=== PATIENT | male | born 1975 | race Caucasian/White ===

== ENCOUNTER 2018-06-05 14:25 | Emergency (ER) | payer SELFPAY ==
[~2018-06-05] VITALS: Ht 177.8 cm; Wt 102.0 kg
[~2018-06-05 14:25] MED LIST: CIPRO500 MG OR; LISI20TA5; NO HOME MEDS; OXYCOD-APAP1 TAB PO; ULTRAM50 MG OR; ZESTRIL10 M1 PO
[2018-06-05] MEDS ORDERED: LISINOPRIL5 MG PO (14:43)
[2018-06-05] MEDS ORDERED: LISINOPRIL20 MG PO (14:57)
[2018-06-05 15:02] VITALS: BP 158/99
== END 2018-06-05 15:02 | disposition home or self-care (01) | DRG 558 ==
LOC: ED 14:25
DX: M62.08 Separation of muscle (nontraumatic), other site (principal); I10 Essential (primary) hypertension; F17.210 Nicotine dependence, cigarettes, uncomplicated; Z91.14 Patient's other noncompliance with medication regimen

== ENCOUNTER 2020-01-06 | Emergency (ER) | payer SELFPAY ==
[~2020-01-06] MED LIST changes: +LISINOPRIL20 MG PO; +LISINOPRIL5 MG PO
[2020-01-06 12:30] LABS: HEMATOCRIT 46.9 % (39.0-50.0); HEMOGLOBIN 15.1 g/dl (14.0-18.0); IMMATURE GRANULOCYTES 0.3 % (0.0-5.0); MEAN CELL VOLUME 91.1 fL CALC (80.0-100.0); MEAN CORPUSCULAR HGB 29.3 pG CALC (26.0-32.0); MEAN CORPUSCULAR HGB CONC 32.2 g/L CALC (32.0-36.0); NEUT# 4.62 thou/uL (1.82-7.42); RED BLOOD COUNT 5.15 mill/uL (4.70-6.10)
[2020-01-06 12:52] LABS: ALBUMIN 4.2 g/dL (3.2-5.0); ALKALINE PHOSPHATASE 56 u/l (38-126); ANION GAP 12 (6-22 (CALC)); BILIRUBIN, TOTAL 0.4 mg/dL (0.0-1.4); BUN 13 mg/dL (9-20); BUN/CREATININE RATIO 20 (12-20 (CALC)); CARBON DIOXIDE 27 mmol/l (22-30); CHLORIDE 104 mmol/l (95-108); CREATININE 0.7 mg/dL (0.7-1.3); GFR > 60 ML/MIN (>=60 (CALC)); GFR FOR AFR.AMER. > 60 ML/MIN (>=60 (CALC)); LIPASE 63 u/l (23-300); POTASSIUM 4.6 mmol/l (3.5-5.1); SGOT/AST 25 u/l (17-59); SODIUM 138 mmol/l (137-146); TOTAL PROTEIN 7.4 g/dL (6.3-8.2)
== END 2020-01-06 15:50 | disposition left against medical advice (07) | DRG 313 ==
DX: R07.9 Chest pain, unspecified (principal); I10 Essential (primary) hypertension; F17.200 Nicotine dependence, unspecified, uncomplicated; T46.4X6A Underdosing of angiotensin-converting-enzyme inhibitors, initial encounter; Z91.128 Patient's intentional underdosing of medication regimen for other reason; Z91.19 Patient's noncompliance with other medical treatment and regimen

== ENCOUNTER 2021-05-21 13:53 | Emergency (ER) | payer MEDICARE ==
[~2021-05-21] VITALS: Ht 177.8 cm; Wt 113.0 kg
[2021-05-21] MEDS ORDERED: KEFLEX500 MG PO (14:48)
[2021-05-21 15:00] VITALS: BP 141/74
[2021-05-21] MEDS ORDERED: LOSARTAN POTASS25 MG PO (15:00)
== END 2021-05-21 15:00 | disposition home or self-care (01) ==
LOC: ED 13:53
DX: S91.114A Laceration without foreign body of right lesser toe(s) without damage to nail, initial encounter (principal); I10 Essential (primary) hypertension; F17.210 Nicotine dependence, cigarettes, uncomplicated; W45.8XXA Other foreign body or object entering through skin, initial encounter; Y92.008 Other place in unspecified non-institutional (private) residence as the place of occurrence of the external cause

== ENCOUNTER 2021-06-17 10:57 | Emergency (ER) | payer MEDICARE ==
[~2021-06-17 10:57] MED LIST changes: +KEFLEX500 MG PO; +LOSARTAN POTASS25 MG PO
[2021-06-17] MEDS ORDERED: TORADOL PO (12:31)
[2021-06-17] MEDS ORDERED: TESSALON PERLE100 MG PO (12:31)
[2021-06-17 12:38] VITALS: BP 116/114
== END 2021-06-17 12:43 | disposition home or self-care (01) ==
LOC: ED 10:57
DX: J06.9 Acute upper respiratory infection, unspecified (principal); I10 Essential (primary) hypertension; F17.200 Nicotine dependence, unspecified, uncomplicated; Z20.822 Contact with and (suspected) exposure to COVID-19

== ENCOUNTER 2023-07-25 08:12 | Day surgery (SDC) | payer MEDICARE ==
[~2023-07-25] VITALS: Ht 177.8 cm; Wt 109.8 kg
[~2023-07-25 08:12] MED LIST changes: +ACETAMINOPHEN325 MG PO; +TESSALON PERLE100 MG PO; +TORADOL PO; +VYZULTA0.024 % OU
[2023-07-25 11:33] VITALS: BP 146/98
== END 2023-07-25 11:41 | disposition home or self-care (01) ==
LOC: ENDO 08:12 → ORM 11:20 → ENDO 11:41 → ORM 12:30
PROVIDERS: ATTEND Internal Medicine Gastroenterology
PROC: 0DBN8ZX Excision of Sigmoid Colon, Via Natural or Artificial Opening Endoscopic, Diagnostic (ICD-10-PCS; principal; 2023-07-25)
PROC: 0DB48ZX Excision of Esophagogastric Junction, Via Natural or Artificial Opening Endoscopic, Diagnostic (ICD-10-PCS; 2023-07-25)
PROC: 0DB78ZX Excision of Stomach, Pylorus, Via Natural or Artificial Opening Endoscopic, Diagnostic (ICD-10-PCS; 2023-07-25)
DX: Z12.11 Encounter for screening for malignant neoplasm of colon (principal); K57.30 Diverticulosis of large intestine without perforation or abscess without bleeding; K50.10 Crohn's disease of large intestine without complications; K64.8 Other hemorrhoids; K21.00 Gastro-esophageal reflux disease with esophagitis, without bleeding; K25.9 Gastric ulcer, unspecified as acute or chronic, without hemorrhage or perforation; K29.70 Gastritis, unspecified, without bleeding; K31.9 Disease of stomach and duodenum, unspecified; Z83.71 Family history of colonic polyps